=== PATIENT | male | born 1960 | race Caucasian/White ===

== ENCOUNTER 2017-06-01 10:28 | Day surgery (SDC) | payer BC ==
[2017-06-01] MEDS ORDERED: D5 LR 1000 ML 1,000 ML IV ONE (10:36)
[2017-06-01] MEDS ORDERED: DIPRIVAN VIAL 20 ML ONE (11:19)
[2017-06-01 11:55] VITALS: BP 131/67
== END 2017-06-01 11:55 | disposition home or self-care (01) ==
LOC: SURG1 10:28
PROVIDERS: ATTEND Internal Medicine Gastroenterology
PROC: 0DJD8ZZ Inspection of Lower Intestinal Tract, Via Natural or Artificial Opening Endoscopic (ICD-10-PCS; principal; 2017-06-01 13:30)
DX: Z12.11 Encounter for screening for malignant neoplasm of colon (principal); K64.0 First degree hemorrhoids
CPT/HCPCS: A4217; J3490; J7120